=== PATIENT | female | born 1950 | race Caucasian/White ===

== ENCOUNTER 2017-01-05 07:54 | Outpatient (CLI) | payer MEDICARE, OTHER ==
[~2017-01-05] VITALS: Ht 165.1 cm; Wt 101.8 kg
--- NOTE | ~2017-01-05 | HEMODYNAMI ---
PATIENT:CHANG BALLESTEROS MEDICAL RECORD: [id number] : 50 LOCATION:[facility] ADMISSION DATE: 01/05/17 Generatedon:01/05/201711:20 Patient name: CHANG BALLESTEROS Patient #: [id number] SSN : : 1950 Date of study: 01/05/2017 Page: Of Hemodynamic Procedure Report Patient Data Patient Demographics Procedure consent was obtained First Name: CHANG Gender: Female Last Name: LESLI : 1950 Middle Initial: A Age: 66 year(s) Patient #: [id number] Race: Unknown Additional ID: [id number] Contact details Address: [address] [place] [address] State: [place] City: [facility] [place] Zip code: [address] Admission Admission Data Admission Date: 01/05/2017 Admission Time: 7:54 Height (in.): 65 BSA: 2.08 (m2) Height (cm.): 165.1 BMI: 37.28 (kg/m2) Weight (lbs.): 224 Weight (kg.): 101.6 Lab Results Lab Result Date: 01/05/2017 Lab Result Time: 0:00 Biochemistry Name Units Result Min Max Creatinine mg/dl 0.8 --(-*--)-- 0.6 1.3 CBC Name Units Result Min Max Hemoglobin g/dl 13.4 -*(----)-- 13.5 17.5 Procedure Procedure Types Cath Procedure Diagnostic Procedure LHC LH w/Coronaries Miscellaneous Procedures Moderate Sedation up to 15 minutes Procedure Description Procedure Date Procedure Date: 01/05/2017 Procedure Start Time: 11:09 Procedure End Time: 11:17 Procedure Staff Name Function Jimmy Luna MD Performing Physician Jose De Jesus Moreno RT Scrub Shanelle Napoles RT Scrub Toni Chan RT Photovoltaic Power Systems Engineer Callie Huff RT Monitor Vickie Villasenor RN Nurse Procedure Data Cath Procedure Fluoroscopy Diagnostic fluoroscopy Total fluoroscopy Time: 1.5 time: 1.5 min min Diagnostic fluoroscopy Total fluoroscopy dose: 358 dose: 358 mGy mGy Contrast Material Contrast Material Type Amount (ml) Isovue 300 41 Entry Location Entry Primary Successful Side Size Upsize Upsize Entry Closure Millan ccessful Closure Location (Fr) 1 (Fr) 2 (Fr) Remarks Device Remarks Radial Right 6 Fr Mechanical artery Short Compression Estimated blood loss: 5 ml Diagnostic catheters Device Type Used For End Catheter Placement Diagnostic Terumo 5Fr LV Angiography [place] 110cm catheter Diagnostic Terumo 5Fr Left Coronary [place] 110cm catheter Angiography Diagnostic Terumo 5Fr Right Coronary [place] 110cm catheter Angiography Procedure Complications No complications Procedure Medications Medication Administration Route Dosage Oxygen NC 2 l/min Lidocaine 2% added to field 20 Heparin Flush Bag added to field 2 bags (1000units/500ml NS) 0.9% NaCl I.V. 100 ml/hr Versed I.V. 1 mg Fentanyl I.V. 50 mcg Radial Cocktail I.A. 1 syringe (Verapomil 2mg/Nitro 400mcg/Heparin 1500units) Versed I.V. 1 mg Fentanyl I.V. 50 mcg Fentanyl I.V. 50 mcg Hemodynamics Rest BSA: 2.08 (m2) HGB: 13.4 (g/dl) O2 Consumption: Estimated: 159.98 (ml/min) O2 Co nsumption indexed: Estimated:76.91 (ml/min/m) Heart Rate: 27 (bpm) Snapshots Pre Cath Intra NCS Post Cath Vital Signs Time Heart Resp SPO2 etCO2 VO2cypp NIBP (mmHg) Rhythm Pain Sedation Rate (ipm) (%) (mmHg) (mmHg) Status Level (bpm) 11:01:24 172 13 95 0 0 Measuring NSR 0 (11) 10(A) , No pain 11:01:41 73 8 94 0 0 107/78(93) NSR 0 (11) 10(A) , No pain 11:06:03 84 12 94 0 0 121/67(116) NSR 0 (11) 10(A) , No pain 11:12:15 85 34 95 0 0 119/72(85) NSR 0 (11) 9(A) , No pain 11:19:17 76 18 97 0 0 122/67(94) NSR 0 (11) 10(A) , No pain Medications Time Medication Route Dose Verified Delivered Reason Notes Effectiveness by by 11:01:19 Oxygen NC 2 l/min Jimmyliz Herculesie used for Cheryl Villasenor RN procedure 11:01:25 Lidocaine 2% added 20ml Jimmy Marquez for local to vial Cheryl Luna MD anesthetic field 11:01:31 Heparin Flush added 2 bags Jimmy Marquez used for Bag to Cheryl Luna MD procedure (1000units/500ml field NS) 11:01:40 0.9% NaCl I.V. 100 Jimmyliz Herculesie Per ml/hr Cheryl Villasenor RN physician 11:02:03 Fentanyl I.V. 50 mcg Jimmy Johnston for sedation Cheryl Villasenor RN 11:02:57 Versed I.V. 1 mg Jimmy Herculesie for sedation Cheryl Villasenor RN 11:06:05 Versed I.V. 1 mg Jimmy Herculesie for sedation Cheryl Villasenor RN 11:06:10 Fentanyl I.V. 50 mcg Jimmy Johnston for sedation Cheryl Villasenor RN 11:11:41 Radial Cocktail I.A. 1 Jimmy Marquez for (Verapomil syringe Cheryl Luna MD vasodilation 2mg/Nitro 400mcg/Heparin 1500units) 11:13:57 Fentanyl I.V. 50 mcg Jimmy Johnston for sedation Cheryl Villasenor RN Procedure Log Time Note 10:43:03 Toni Chan RT(R) sent for patient. Start room use. 10:43:04 Time tracking: Regular hours 10:43:08 Plan of Care:Hemodynamics will remain stable., Cardiac rhythm will remain stable., Comfort level will be maintained., Respiratory function will remain adequate., Patient/ family verbilizes understanding of procedure., Procedure tolerated without complication., Recovers from procedure without complications.. 10:44:11 Lab Result : Hemoglobin 13.4 g/dl 10:44:11 Lab Result : Creatinine 0.8 mg/dl 10:44:24 Patient Height : 65 cm 10:44:25 Patient Weight : 224 kg 10:45:01 Patient received from Pre/Post Procedure Room to CCL 1 Alert and oriented. Tansferred to table in Supine position. 10:45:02 Warm blankets applied, and selvin hugger turned on for patient comfort. 10:45:03 Correct patient and procedure confirmed by team. 10:45:04 Signed procedure consent form obtained from patient. 10:45:05 ECG and BP/O2 sat monitors applied to patient. 10:45:06 Full Disclosure recording started 10:52:26 H&P Date Dictated: 12/14/2016 Within 30 days and on chart., H&P Addendum completed by physician on day of procedure. (MUST COMPLETE FOR ALL OUTPATIENTS). 10:52:26 Pre-procedure instructions explained to patient. 10:52:27 Pre-op teaching completed and patient verbalized understanding. 10:52:30 Family in waiting room. 10:52:31 Patient NPO since Midnight. 10:52:34 Is the patient allergic to Iodine/contrast media? No. 10:52:35 Is patient on blood thinner?No 10:52:43 Patient diabetic? No. 10:52:46 Patient not . Patient is over age 55. 10:52:49 Previous problem with sedation/anesthesia? No ? 10:52:52 Snore? No 10:52:53 Sleep apnea? No 10:52:54 Deviated septum? No 10:52:55 Opens mouth fully? Yes 10:52:55 Sticks out tongue? Yes 10:52:58 Airway obstruction? No ? 10:53:12 Dentures? Yes Partial IN 10:53:16 Pre procedure: right dorsailis pedis pulse 1+ Palpable, but thready & weak; easily obliterated 10:53:18 Modified Brad's test Ulnar < 7 seconds 10:53:20 Patient pain scale 0/10 ?. 10:53:27 IV patent on arrival in left forearm with 0.9% NaCl at KVO. 10:53:29 Lab results completed and on chart. 10:53:34 Right Radial & Right Groin area was prepped with chlora-prep and draped in sterile fashion 10:53:35 Alarms reviewed by R. N. 10:53:36 Sharps counted by scrub and verified by R.N. 10:58:42 Final Timeout: patient, procedure, and site verified with staff and physician. All members of the team are in agreement. 10:58:44 Right Radial & Right Groin site verified by team. 10:58:47 Physical assessment completed. ASA score P 2 - A patient with mild systemic disease as per Jimmy Luna MD. 10:58:51 Sedation plan: IV Moderate Sedation Versed, Fentanyl 10:59:35 Vital chart was started 11:00:33 Zero performed for pressure channel P1 11:00:37 Zero performed for pressure channel P1 11:01:19 Oxygen 2 l/min NC was administered by Vickie Villasenor RN; used for procedure; 11::25 Lidocaine 2% 20ml vial added to field was administered by Jimmy Luna MD; for local anesthetic; 11::31 Heparin Flush Bag (1000units/500ml NS) 2 bags added to field was administered by Jimmy Luna MD; used for procedure; 11::40 0.9% NaCl 100 ml/hr I.V. was administered by Vickie Villasenor RN; Per physician; 11:02:03 Fentanyl 50 mcg I.V. was administered by Vickie Villasenor RN; for sedation; 11::34 Vital chart was stopped 11::57 Versed 1 mg I.V. was administered by Vickie Villasenor RN; for sedation; 11:06:05 Versed 1 mg I.V. was administered by Vickie Villasenor RN; for sedation; 11:06:10 Fentanyl 50 mcg I.V. was administered by Vickie Villasenor RN; for sedation; 11:06:13 Baseline sample Acquired. 11:09:36 Procedure started. 11:09:48 Local anesthetic to right radial artery with Lidocaine 2% by Jimmy Luna MD.INITIAL ACCESS ONLY 11:10:05 Vital chart was started 11:10:14 Rhythm: sinus rhythm 11:10:26 A 6 Fr Short sheath was inserted into the Right Radial artery 11:11:03 A Diagnostic Terumo 5Fr [place] 110cm catheter was advanced over the wire and used for LV Angiography. 11:11:41 Radial Cocktail (Verapomil 2mg/Nitro 400mcg/Heparin 1500units) 1 syringe I.A. was administered by Jimmy Luna MD; for vasodilation; 11:12:14 LV gram done using ABRAHAM 11:12:20 EF : 55 % 11:12:23 Injector settings: Ml/sec: 5, Volume: 15, 11:12:30 A Diagnostic Terumo 5Fr [place] 110cm catheter was advanced over the wire and used for Left Coronary Angiography. 11:13:57 Fentanyl 50 mcg I.V. was administered by Vickie Villasenor RN; for sedation; 11:14:16 A Diagnostic Terumo 5Fr [place] 110cm catheter was advanced over the wire and used for Right Coronary Angiography. 11:14:19 Catheter removed. 11:14:28 Sheath removed intact; hemostasis achieved with Mechanical Compression to the Right Radial artery. 11:14:30 Procedure ended.(Physican Out) 11:14:51 Fluoroscopy time 01.50 minutes. 11:14:55 Fluoroscopy dose: 358 mGy 11:14:55 Flurop Dose total: 358 11:15:00 Contrast amount:Isovue 300 41ml. 11:15:01 Sharps counted by scrub and verified by R.N. 11:15:05 TR band inflated with 12cc of air. 11:15:06 Insertion/operative site no bleeding no hematoma. 11:15:14 Post right radial artery:stable, clean and dry 11:15:16 Post Procedure Pulses reassessed and unchanged 11:15:19 Post-procedure physical assessment completed. ASA score P 2 - A patient with mild systemic disease as per Jimmy Luna MD. 11:15:21 Post procedure rhythm: unchanged. 11:15:23 Estimated blood loss: 5 ml 11:15:25 Post procedure instruction explained to patient.Patient verbalizes understanding. 11:15:25 Patient needs reinforcement of post procedure teaching. 11:15:35 Procedure type changed to Cath procedure, Diagnostic procedure, LHC, LHC w/Coronaries, Miscellaneous Procedures, Moderate Sedation up to 15 minutes 11:15:45 Procedure Complication : No complications 11:15:48 See physician's report for complete and final results. 11:16:02 Use device set Radial Dx 11:16:03 Acist Syringe opened to sterile field. 11:16:04 Medline Cath Pack opened to sterile field. 11:16:04 Bag Decanter opened to sterile field. 11:16:04 Terumo 6Fr Slender Glidesheath opened to sterile field. 11:16:05 St Sin 260cm J .035 wire opened to sterile field. 11:16:05 Acist Hand Control opened to sterile field. 11:16:05 Acist Manifold opened to sterile field. 11:16:06 Tegaderm 4 x 4 opened to sterile field. 11:16:06 MBrace Wrist Support opened to sterile field. 11:17:02 Terumo TR Band Standard opened to sterile field. 11:17:12 Procedure and supply charges have been captured, reviewed, submitted and are correct. 11:17:14 Report given to Pre/Post Procedure Room. 11:17:17 Patient transfered to Pre/Post Procedure Room with Stretcher. 11:17:26 Procedure ended. 11:17:26 Full Disclosure recording stopped 11:17:29 End room use (Document Last) 11:20:20 Vital chart was stopped Device Usage Item Name Manufacture Quantity Catalog Hospital Part Current Minimal Lot# / Number Charge Number Stock Stock Serial# Code Diagnostic Terumo 1 [id number] [id number] [id number] [id number] 5 Terumo 5Fr [place] 110cm catheter Acist Acist 1 82295 614287 566138 [id number] 20 Syringe Medical Systems Inc Medline Cardinal 1 [id number] 675188 96848 702439 5 Cath Pack Health Bag Microtek 1 2002S 335956 60245 033123 5 Dec[employer] Terumo 6Fr Terumo 1 [id number] 320967 538957 720738 [address] Sin St Sin 1 035267 078789 565952 392785 30 260cm J .035 wire Acist Hand Acist 1 22226 678781 953461 324789 5 Control Medical Systems Inc Acist Acist 1 34932 070839 660795 978780 5 Manifold Medical Systems Inc Tegaderm 4 3M 1 1626W 584783 662816 900916 5 x 4 MBrace Advanced 1 140-0250-00 976254 39295 533095 5 Wrist Vascular Support Dynamics Terumo TR Terumo 1 [id number] 873737 603783 482309 40 Band Standard Signature Audit [place] Stage Time Signature Unsigned Intra-Procedure 01/05/2017 Callie 11:20:17 AM Counts RT(R) Signatures Monitor : Callie Signature : Counts RT Date : Time : [place] [id number] [place] [id number]
[2017-01-05] MEDS ORDERED: NORVASC5 MG PO (08:27)
[2017-01-05] MEDS ORDERED: COZAAR100 MG PO (08:28)
[2017-01-05] MEDS ORDERED: OMEPRAZOLE20 M1 PO (08:28)
[2017-01-05] MEDS ORDERED: TOPROL XL25 MG PO (08:28)
[2017-01-05] MEDS ORDERED: LEXAPRO10 MG PO (08:28)
[2017-01-05] MEDS ORDERED: MULTIPLE VITAMI1 TA1 PO (08:29)
[2017-01-05] MEDS ORDERED: PRAVASTATIN SOD10 MG PO (08:29)
[2017-01-05] MEDS ORDERED: VITAMIN B-12500 MCG PO (08:29)
[2017-01-05 08:37] VITALS: BP 147/80; Ht 165.1 cm; Wt 101.8 kg
[2017-01-05 08:45] LABS: BASOPHILS 0.5 % (0-2); EOSINOPHILS 0 % (0-7); HEMATOCRIT 39.5 % (36.0-48.0); HEMOGLOBIN 13.4 g/dL (12-16); IMMATURE GRANULOCYTES 0.3 % (0-5); LYMPHOCYTES 27.4 % (15-50); MCH 29.1 pg (26.0-34.0); MCHC 33.9 g/dL (31.0-37.0); MCV 85.7 fL (80.0-100.0); MEAN PLATELET VOLUME 10.1 fL (7.4-10.4); NEUTROPHILS 65.8 % (40-80); PLATELET COUNT 209 10x3/uL (130-400); RBC 4.61 10x6/uL (4.00-5.40); RDW 13.3 % (11.5-14.5); WBC 6.5 10x3/uL (4.8-10.8)
[2017-01-05 08:55] LABS: CALC OSMOLALITY 278 mosm/kg (275-300); CALCIUM 8.9 mg/dL (8.5-10.1); CARBON DIOXIDE 27.5 mmol/L (21.0-32.0); CHLORIDE - SERUM 104 mmol/L (98-107); CREATININE - SERUM 0.8 mg/dL (0.6-1.3); GLUCOSE 101 mg/dL (74-106); POTASSIUM - SERUM 3.9 mmol/L (3.5-5.1); SODIUM 140 mmol/L (136-145); UREA NITROGEN 13 mg/dL (7-18); eGFR NON AFRICAN AMERICAN 76 mL/min (90-120)
--- NOTE | 2017-01-05 11:34 | NUR ---
1125 RECEIVED PT FROM SNUFF BOX FINISHER, PT IS DROWSY. DENIES ANY C/O PAIN OR NAUSEA. RR EVEN AND UNLABORED. VSS. TR BAND TO RIGHT WRIST IS CDI, NO BLEEDING OR HEMATOMA NOTED. CAP REFILL TO FINGERS IS BRISK, FINGERS PINK AND WARM. CALL LIGHT IN REACH, NO FAMILY AT BEDSIDE.
--- NOTE | 2017-01-05 11:48 | NUR ---
RESTING QUIETLY WITH EYES CLOSED NO DISTRESS NOTED. VSS WITH TR BAND TO R/WRIST CDI NO BLEEDING NO HEMATOMA NOTED.
--- NOTE | 2017-01-05 12:12 | NUR ---
2 CC AIR REMOVED FROM TR BAND WITH NO BLEEDING NO HEMATOMA NOTED. REPOSITIONED TO SITTING WITH HOB UP 30 DEGREES SANDWICH AND SODA TO BEDSIDE
--- NOTE | 2017-01-05 12:21 | NUR ---
2 CC AIR REMOVED FROM TR BAND WITH NO BLEEDING NO HEMATOMA NOTED.
--- NOTE | 2017-01-05 12:48 | NUR ---
2 CC AIR REMOVED FROM TR BAND WITH NO BLEEDING NOTED
--- NOTE | 2017-01-05 13:06 | NUR ---
PIV REMOVED WITH DRESSING APPLIED. PATIENT UP TO GET DRESSED FOR DISCHARGE HOME CHEST PAIN DENIED
--- NOTE | 2017-01-05 13:20 | NUR ---
TR BAND REMOVED WITH DRESSING APPLIED NO BLEEDING NO HEMATOMA NOTED. VERBAL AND WRITTEN DISCHARGE GONE OVER WITH FAMILY LEFT VIA WC TO [facility]ARK[facility] FOR TRANSPORT HOME
--- NOTE | 2017-01-05 13:52 | OP ---
PATIENT NAME: CHANG BALLESTEROS MEDICAL RECORD: [id number] :50 LOCATION:D[facility] ADMISSION DATE: SURGEON: LIA MIMS MD DATE OF OPERATION: 01/05/2017 PROCEDURES: 1. Left heart catheterization. 2. Selective coronary angiography. 3. Left ventriculogram. INDICATION: Angina and coronary artery disease. PROCEDURE IN DETAIL: After informed consent was obtained and after detailed explanation of risks, benefits as well as alternative therapies, the patient elected to proceed with angiogram and heart catheterization. The right radial area was prepped and draped in normal sterile fashion. The right radial artery was cannulated via modified Seldinger technique with the placement of 5-Swedish sheath. All catheters exchanged through this sheath. FINDINGS: Left ventriculogram was performed in standard 30-degree ABRAHAM view, reveals good cardiac wall motion throughout all segments. Overall ejection fraction estimated at 60%. SELECTIVE CORONARY ANGIOGRAPHY: Left main, left anterior descending, left circumflex, and right coronary artery are all smooth-walled vessels with no angiographic evidence of coronary artery disease. OVERALL IMPRESSION: 1. No angiographic evidence of coronary artery disease. 2. Normal left heart pressures. 3. Normal left ventricular systolic function. Chest pain is noncardiac in etiology. No further cardiac workup needs to be ascertained. TRANSINT:[id number] Voice Confirmation ID: [id number] DOCUMENT ID: [id number] LIA MIMS MD at 1352 CC: [id number] DICTATION DATE: 01/05/17 1117 SHELLS INSPECTOR: 01/05/17 1234 DEP CLI 01/05/17 [place] [id number]
== END 2017-01-05 13:24 | disposition home or self-care (01) ==
LOC: D.CATH 07:54
PROVIDERS: Internal Medicine Interventional Cardiology
DX: I20.9 Angina pectoris, unspecified (principal); R06.02 Shortness of breath; I10 Essential (primary) hypertension; E78.5 Hyperlipidemia, unspecified; Z87.891 Personal history of nicotine dependence; Z01.812 Encounter for preprocedural laboratory examination

== ENCOUNTER 2018-07-20 14:47 | Emergency (ER) | payer MEDICARE, OTHER ==
[~2018-07-20] VITALS: Ht 165.1 cm; Wt 97.7 kg
[~2018-07-20 14:47] MED LIST: COZAAR100 MG PO; LEXAPRO10 MG PO; MULTIPLE VITAMI1 TA1 PO; NORVASC5 MG PO; OMEPRAZOLE20 M1 PO; PRAVASTATIN SOD10 MG PO; TOPROL XL25 MG PO; VITAMIN B-12500 MCG PO
[2018-07-20 15:07] VITALS: Ht 165.1 cm; Wt 97.7 kg
[2018-07-20] MEDS ORDERED: BYSTOLIC2.5 MG PO (15:08)
[2018-07-20 16:24] LABS: APPEARANCE CLEAR (CLEAR); BILIRUBIN NEGATIVE (NEGATIVE); COLOR STRAW (YELLOW); GLUCOSE NEGATIVE (NEGATIVE); KETONE NEGATIVE (NEGATIVE); NITRITE NEGATIVE (NEGATIVE); PROTEIN NEGATIVE (NEGATIVE); UROBILINOGEN NORMAL (NORMAL)
[2018-07-20 16:26] LABS: BASOPHILS 0.1 % (0-2); EOSINOPHILS 0 % (0-7); HEMATOCRIT 42.2 % (36.0-48.0); HEMOGLOBIN 14.3 g/dL (12-16); IMMATURE GRANULOCYTES 0.3 % (0-5); LYMPHOCYTES 20.6 % (15-50); MCH 28.9 pg (26.0-34.0); MCHC 33.9 g/dL (31.0-37.0); MCV 85.4 fL (80.0-100.0); MEAN PLATELET VOLUME 10.1 fL (7.4-10.4); MONOCYTES 4.8 % (2-11); NEUTROPHILS 74.2 % (40-80); PLATELET COUNT 212 10x3/uL (130-400); RBC 4.94 10x6/uL (4.00-5.40); RDW 13.2 % (11.5-14.5); WBC 7.7 10x3/uL (4.8-10.8)
[2018-07-20 16:35] LABS: ANION GAP 15.8 mmol/L (8-16); BILIRUBIN - TOTAL 0.26 mg/dL (0.2-1.3); CALCIUM 8.8 mg/dL (8.5-10.1); CARBON DIOXIDE 27.8 mmol/L (21.0-32.0); CREATININE - SERUM 0.9 mg/dL (0.6-1.3); POTASSIUM - SERUM 3.6 mmol/L (3.5-5.1); PROTEIN - SERUM 7.7 g/dL (6.4-8.2)
[2018-07-20 17:31] VITALS: BP 160/87
== END 2018-07-20 17:31 | disposition home or self-care (01) ==
LOC: D.ER 14:47
PROVIDERS: Emergency Medicine
DX: I10 Essential (primary) hypertension (principal)

== ENCOUNTER → 2018-08-27 11:05 | Outpatient (CLI) | payer MEDICARE, OTHER ==
[2018-07-20 15:07] VITALS: BMI 35.8
[~2018-08-27 11:05] MED LIST changes: +BYSTOLIC2.5 MG PO
--- NOTE | 2018-09-04 10:38 | EC ---
PATIENT:CHANG BALLESTEROS DATE OF SERVICE: 08/27/18 SEX: F MEDICAL RECORD: [id number] DATE OF : 50 [facility] AGE OF PATIENT: 68 ADMISSION DATE: 08/27/18 REFERRING PHYSICIAN: INTERPRETING PHYSICIAN: LIA LUNA MD ECHOCARDIOGRAM REPORT ECHO CHARGES 4 ECHO COMPLETE Date: 08/27/18 CLINICAL DIAGNOSIS: PALPITATIONS ECHOCARDIOGRAPHIC MEASUREMENTS (adult normal given) AC root (d.<3.7cm) 3.6 cm LV Septum d (<1.2 cm> 1.2 cm Valve Excursion 1.7 cm LV Septum (systole) 1.4 cm Left Atria (s.<4.0cm> 3.7 cm LVPW d(<1.2cm) 1.2 cm RV (d.<2.3cm) 2.6 cm LVPW (sytole) 1.5 cm LV diastole(<5.6CM) 4.4 cm MV E-F(>70mm/sec) cm LV systole 3.1 cm LVOT Diameter 1.9 cm MV exc.(>10mm) 1.0 cm Est.ejection fraction (50-75%) % DOPPLER: LVIT cm/sec A 77.0 cm/sec E 92.0 cm/sec LA cm/sec RVSP 41 mmHg LVOT 88 cm/sec AOP1/2T m/s Asc. Ao 115 cm/sec RVOT 102 cm/sec RA cm/sec PA 109 cm/sec AV Gradient Peak 5.25 mmHg AV Mean 3.16 mmHg AV Area 2.2 cm MV Gradient Peak 4.95 mmHg MV Mean 1.49 mmHg MV Area cm COMMENTS: Statistical Financial Analyst: Anabell KYLE Inventory Taker: 1 Dr. Luna TAPE# PACS Pericardial Effusion N DATE OF SERVICE: 08/27/2018 FINDINGS: 1. Left ventricular chamber size is within normal limits. Left ventricular systolic function is normal. Overall ejection fraction estimated at 60%. 2. Left atrium, right atrium, and right ventricular chamber sizes are within normal limits. 3. Valvular structures have normal structure and motion. 4. Doppler interrogation only reveals mild tricuspid regurgitation, no other valvular insufficiency or stenosis. ECHOCARDIOGRAM REPORT [id number] CHANG BALLESTEROS 5. No evidence of pericardial effusion or left ventricular thrombus. TRANSINT:[id number] Voice Confirmation ID: [id number] DOCUMENT ID: [id number] LIA LUNA MD at 1038 CC: [id number] DICTATION DATE: 08/28/18399 CHANGE ATTENDANT: 08/28/18 0432 DEP CLI 08/27/18 [place] [id number] [place] [id number]
== END | disposition home or self-care (01) ==
LOC: D.HCCARDIO 11:05
PROVIDERS: ATTEND Internal Medicine Interventional Cardiology
DX: R00.2 Palpitations (principal)

== ENCOUNTER 2019-09-01 12:52 | Emergency (ER) | payer MEDICARE, OTHER ==
[~2019-09-01] VITALS: Ht 165.1 cm; Wt 95.5 kg
[2019-09-01 13:16] VITALS: Ht 165.1 cm; Wt 95.5 kg
[2019-09-01] MEDS ORDERED: ZIPSOR25 MG PO (13:19)
[2019-09-01] MEDS ORDERED: ZOLOFT100 MG PO (13:20)
[2019-09-01] MEDS ORDERED: BISOPROLOL-HCT1 EAC1 PO (13:20)
[2019-09-01 13:38] LABS: BASOPHILS 0.2 % (0-2); EOSINOPHILS 0 % (0-7); HEMATOCRIT 44.4 % (36.0-48.0); HEMOGLOBIN 14.2 g/dL (12-16); IMMATURE GRANULOCYTES 0.5 % (0-5); LYMPHOCYTES 14.8 % (15-50); MCH 28.1 pg (26.0-34.0); MCV 87.7 fL (80.0-100.0); MONOCYTES 3.2 % (2-11); NEUTROPHILS 81.3 % (40-80); RBC 5.06 10x6/uL (4.00-5.40); RDW 13.1 % (11.5-14.5); WBC 10.5 10x3/uL (4.8-10.8)
[2019-09-01 13:40] LABS: PLATELET COUNT 399 10x3/uL (130-400)
[2019-09-01 13:55] LABS: BILIRUBIN NEGATIVE (NEGATIVE); GLUCOSE NEGATIVE (NEGATIVE); KETONE NEGATIVE (NEGATIVE); NITRITE NEGATIVE (NEGATIVE); UROBILINOGEN NORMAL (NORMAL)
[2019-09-01 13:59] LABS: CALC OSMOLALITY 280 mosm/kg (275-300); CARBON DIOXIDE 29.1 mmol/L (21.0-32.0); CHLORIDE - SERUM 99 mmol/L (98-107); CREATININE - SERUM 1.1 mg/dL (0.6-1.3); GLUCOSE 124 mg/dL (74-106); POTASSIUM - SERUM 3.7 mmol/L (3.5-5.1); SODIUM 139 mmol/L (136-145); UREA NITROGEN 17 mg/dL (7-18); eGFR NON AFRICAN AMERICAN 52 mL/min (90-120)
[2019-09-01 14:07] LABS: ALBUMIN 4.1 g/dL (3.4-5.0); ALKALINE PHOSPHATASE 79 U/L (30-120); ALT (SGPT) 31 U/L (10-68); AMYLASE - SERUM 50 U/L (25-115); BILIRUBIN - TOTAL 0.32 mg/dL (0.2-1.3); LIPASE 73 U/L (73-393); PROTEIN - SERUM 8.7 g/dL (6.4-8.2)
[2019-09-01 14:08] LABS: TROPONIN-I < 0.017 ng/mL (0.000-0.060)
[2019-09-01] MEDS ORDERED: ZOFRAN ODT4 MG/UDTAB PO (15:26)
[2019-09-01] MEDS ORDERED: HYDROCODON-ACE1 EA10 PO (15:26)
[2019-09-01] MEDS ORDERED: FLOMAX0.4 MG PO (15:26)
[2019-09-01 16:00] VITALS: BP 160/85
== END 2019-09-01 16:01 | disposition home or self-care (01) ==
LOC: D.ER 12:52
PROVIDERS: Family Medicine
DX: N20.1 Calculus of ureter (principal); N23 Unspecified renal colic; I10 Essential (primary) hypertension; K21.9 Gastro-esophageal reflux disease without esophagitis; Z72.0 Tobacco use